=== PATIENT | male | born 1985 | race Two or more races ===

== ENCOUNTER 2018-07-30 06:35 | Emergency (ER) | payer OTHER ==
[~2018-07-30] VITALS: Ht 177.8 cm; Wt 79.4 kg
[2018-07-30 06:44] VITALS: Ht 177.8 cm; Wt 79.4 kg
[2018-07-30 07:09] LABS: BASOPHIL % 0.6 % (0-2); RED CELL DISTRIBUTION WIDTH 13.1 % (11.5-14.5)
[2018-07-30 07:17] LABS: CALCIUM 8.9 mg/dL (8.5-10.1); CHLORIDE SERUM 101 mmol/L (98-107); CREATININE SERUM 1.2 mg/dL (0.7-1.3); GFR1 > 60 mL/min; GLUCOSE SERUM 153 mg/dL (74-106); POTASSIUM SERUM 4.5 mmol/L (3.5-5.1); SODIUM SERUM 138 mmol/L (136-145)
[2018-07-30 07:22] LABS: ALBUMIN 4.2 g/dL (3.4-5.0); ALKALINE PHOSPHATASE 79 U/L (46-116); ALT/SGPT 44 U/L (16-63); AST/SGOT 24 U/L (15-37); BILIRUBIN TOTAL 0.4 mg/dL (0.20-1.00); CHOLESTEROL 145 mg/dL (<200); TOTAL PROTEIN, SERUM 7.3 g/dL (6.4-8.2)
[2018-07-30 07:50] LABS: AMPHETAMINE QUAL UR NONE DETECTED (See below)
[2018-07-30 07:54] LABS: PLATELET COUNT 321 x10^3mcL (130-400)
[2018-07-30 10:14] VITALS: BP 129/82
== END 2018-07-30 10:14 | disposition short-term general hospital (02) ==
LOC: ED 06:35
PROVIDERS: Specialist
DX: R56.9 Unspecified convulsions (principal); R41.82 Altered mental status, unspecified; F84.0 Autistic disorder; J18.9 Pneumonia, unspecified organism; Z88.2 Allergy status to sulfonamides
CPT/HCPCS: 87804; G0480; J0456; J0696; J7030; J7050; Q0092